=== PATIENT | female | born 1965 | race Caucasian/White ===

== ENCOUNTER → 2016-04-24 | Outpatient (CLI) | payer OTHER | LOC: FIMAGING 07:19 | PROVIDERS: ATTEND Internal Medicine Rheumatology | DX: R05 Cough (principal); R06.02 Shortness of breath; R61 Generalized hyperhidrosis ==

== ENCOUNTER → 2016-04-28 | Outpatient (CLI) | payer OTHER ==
[~2016-04-28] MED LIST: IOPAMIDOL (ISOVUE-300) 100 ML BTL IV ONE
== END ==
LOC: CIMAGING 09:16
PROVIDERS: ATTEND Internal Medicine Rheumatology
DX: R05 Cough (principal); R63.4 Abnormal weight loss; R61 Generalized hyperhidrosis; Z90.10 Acquired absence of unspecified breast and nipple
CPT/HCPCS: 71260-PO; Q9967

== ENCOUNTER → 2017-09-10 | Outpatient (CLI) | payer OTHER ==
[~2017-09-10] MED LIST changes: -IOPAMIDOL (ISOVUE-300) 100 ML BTL IV ONE; +LIDOCAINE 1% 300 MG/30 ML SDV ONE
== END ==
LOC: FIMAGING 07:27
PROVIDERS: ATTEND Internal Medicine Endocrinology, Diabetes & Metabolism
PROC: 0GBH3ZX Excision of Right Thyroid Gland Lobe, Percutaneous Approach, Diagnostic (ICD-10-PCS; principal; 2017-09-10)
DX: E04.1 Nontoxic single thyroid nodule (principal)

== ENCOUNTER → 2017-12-11 | Outpatient (CLI) | payer OTHER | LOC: FIMAGING 09:36 | PROVIDERS: ATTEND Otolaryngology | DX: R05 Cough (principal); J98.4 Other disorders of lung ==

== ENCOUNTER → 2018-02-18 | Outpatient (CLI) | payer OTHER | LOC: CIMAGING 15:03 | PROVIDERS: ATTEND Internal Medicine Endocrinology, Diabetes & Metabolism | DX: E04.1 Nontoxic single thyroid nodule (principal) | CPT/HCPCS: 76536-PO ==

== ENCOUNTER → 2018-05-06 | Outpatient (CLI) | payer OTHER | LOC: FIMAGING 12:22 | PROVIDERS: ATTEND Internal Medicine | DX: Z12.31 Encounter for screening mammogram for malignant neoplasm of breast (principal); Z80.3 Family history of malignant neoplasm of breast ==

== ENCOUNTER → 2018-05-27 | Outpatient (CLI) | payer OTHER | LOC: FIMAGING 14:55 | PROVIDERS: ATTEND Internal Medicine | DX: N63.11 Unspecified lump in the right breast, upper outer quadrant (principal); N64.4 Mastodynia; Z85.3 Personal history of malignant neoplasm of breast ==

== ENCOUNTER → 2018-07-01 | Outpatient (CLI) | payer OTHER ==
[~2018-07-01] MED LIST changes: +GADOBUTROL 10 ML VIAL IVP ONE; -LIDOCAINE 1% 300 MG/30 ML SDV ONE
== END ==
LOC: FIMAGING 12:12
PROVIDERS: ATTEND Internal Medicine
DX: M79.621 Pain in right upper arm (principal); Z98.82 Breast implant status; Z80.3 Family history of malignant neoplasm of breast
CPT/HCPCS: A9585; C8908

== ENCOUNTER → 2018-07-15 | Outpatient (CLI) | payer OTHER | LOC: BMCIMAGING 08:38 | PROVIDERS: ATTEND Emergency Medicine | DX: S69.91XA Unspecified injury of right wrist, hand and finger(s), initial encounter (principal) ==

== ENCOUNTER → 2018-08-09 | Outpatient (CLI) | payer OTHER | LOC: FIMAGING 07:54 ==